=== PATIENT | male | born 1995 | race Caucasian/White ===

== ENCOUNTER 2019-12-31 13:04 | Outpatient (CLI) | payer MEDICAID ==
[~2019-12-31] VITALS: Ht 188 cm; Wt 72.1 kg
[2019-12-31 13:22] VITALS: BP 109/89
--- NOTE | 2019-12-31 14:15 | Consultation ---
DATE OF CONSULTATION: 12/31/2019 CHIEF COMPLAINT: Abdominal pain, bloating. PAST MEDICAL HISTORY: None. PAST SURGICAL HISTORY: Bilateral inguinal hernia repair. MEDICATIONS: None. FAMILY HISTORY: No family history of GI malignancies. SOCIAL HISTORY: The patient denies any tobacco, alcohol, or drug abuse. ALLERGIES: To penicillin. REVIEW OF SYSTEMS: Positive for abdominal pain, bloating, gassiness. PHYSICAL EXAMINATION: VITAL SIGNS: Temperature 98.1, blood pressure 109/51, pulse 66, respirations 20. HEENT: Normocephalic and atraumatic. Sclerae anicteric. NECK: Supple. No evidence of obvious lymphadenopathy. CARDIOVASCULAR: Regular rate and rhythm. Plus S1 and S2. LUNGS: Clear to auscultation bilaterally. ABDOMEN: . Soft and nontender. No rebound. No guarding. No peritoneal sign. EXTREMITIES: No cyanosis. No clubbing. No edema. ASSESSMENT AND PLAN: The patient is a 24-year-old male with signs and symptoms highly suspicious for SIBO. Plan to do a course of Xifaxan for 14 days followed by Align or VSL#3 whichever the patient can afford and come back in the office after that. Mu Amaral M.D. DR: Christine JOB#: [id number] CC:
== END 2019-12-31 15:04 | disposition home or self-care (01) ==
LOC: PAN 13:04
DX: R10.9 Unspecified abdominal pain (principal); R14.0 Abdominal distension (gaseous); R14.3 Flatulence; Z88.0 Allergy status to penicillin
CPT/HCPCS: G0463